=== PATIENT | male | born 1970 | race Caucasian/White ===

== ENCOUNTER → 2020-04-03 | Outpatient (CLI) | payer MEDICAID | END | disposition home or self-care (01) | LOC: Rad HDHVI 13:22 | PROVIDERS: ATTEND Internal Medicine Cardiovascular Disease | DX: I08.1 Rheumatic disorders of both mitral and tricuspid valves (principal); I10 Essential (primary) hypertension; I44.7 Left bundle-branch block, unspecified; I42.9 Cardiomyopathy, unspecified | CPT/HCPCS: 93306 ==

== ENCOUNTER → 2020-05-15 | Outpatient (CLI) | payer MEDICAID ==
[~2020-05-15] MED LIST: ATOR20TA PO; CHOL20007 PO; SACU1TAB7 PO
[2020-05-15 11:15] VITALS: BP 107/65
[2020-05-15 11:55] VITALS: BP 117/58
[2020-05-15 11:57] LABS: Basophils # (auto) 0 10 ^3/uL (0-0.2); Basophils % (auto) 0.4 % (0.0-2.0); Eosinophils # (auto) 0.1 10 ^3/uL (0-0.8); Eosinophils % (auto) 1.3 % (0.0-7.0); Hematocrit 45.4 % (41.0-53.0); Hemoglobin 14.9 g/dL (13.5-17.5); Lymphocytes # (auto) 1.8 10 ^3/uL (0.4-5.4); Lymphocytes % (auto) 22.8 % (10.0-50.0); Mean Corpuscular Hemoglobin 29.3 pg (28.0-32.0); Mean Corpuscular Hgb Conc. 32.9 g/dL (32.0-36.0); Mean Corpuscular Volume 89.1 fL (80.0-100.0); Monocytes # (auto) 0.4 10 ^3/uL (0-1.3); Monocytes % (auto) 5.6 % (0.0-12.0); Neutrophils # (auto) 5.5 10 ^3/uL (1.6-8.6); Neutrophils % (auto) 69.9 % (37.0-80.0); Platelet Count (auto) 313 10^3/uL (140-450); Red Blood Cells 5.09 10^6/uL (4.5-5.90); Red Cell Distribution Width 13.1 % (11.8-14.3); White Blood Cell 7.8 10^3/uL (4.4-10.8)
[2020-05-15 12:05] LABS: BUN/Creatinine Ratio 7.3; Calcium 9.1 mg/dL (8.5-10.1); Potassium 3.8 mmol/L (3.5-5.1)
[2020-05-15 12:15] LABS: INR 1.04 (0.9-1.15); Partial Thromboplastin Time 30.2 sec (23.64-32.05)
== END | disposition home or self-care (01) ==
LOC: Rad HDHVI 11:03
PROVIDERS: ATTEND Internal Medicine Cardiovascular Disease
DX: Z01.812 Encounter for preprocedural laboratory examination (principal); I10 Essential (primary) hypertension; D64.9 Anemia, unspecified; R79.1 Abnormal coagulation profile
CPT/HCPCS: 36415; 71046; 80048; 85025; 85610; 85730; 93005; G0463

== ENCOUNTER 2020-05-18 07:14 | Inpatient (IN) | payer MEDICAID ==
[~2020-05-18] VITALS: Ht 177.8 cm; Wt 120.0 kg
[2020-05-18] MEDS ORDERED: VANCOMYCIN HCL 1000 MG VL ONE (08:11)
[2020-05-18] MEDS ORDERED: VANCOMYCIN 1GM/250ML 250 ML IV ONE (08:11)
[2020-05-18] MEDS ORDERED: LIDOCAINE 2%HCL (LOCAL ANESTH.) INJ 20ML MDV ONE ×2 (08:15→08:56)
[2020-05-18] MEDS ORDERED: MIDAZOLAM HCL 1MG/1ML-2 ML VIAL ONE (08:25)
[2020-05-18] MEDS ORDERED: ATROPINE SULF 1 MG/10ml SYR ONE (08:25)
[2020-05-18] MEDS ORDERED: fentaNYL CITRATE 100 MCG/2 ML VL ONE (08:25)
[2020-05-18] MEDS ORDERED: IOHEXOL 350 MG/ML 100ML IJ ONE (08:35)
[2020-05-18] MEDS ORDERED: FUROSEMIDE 20 MG/2 ML VIAL ONE (09:41)
[2020-05-18] MEDS ORDERED: ONDANSETRON HCL 4 MG/2 ML VIAL ONE (10:08)
[2020-05-18] MEDS ORDERED: SODIUM CHLORIDE 0.9% 1,000 ML IV ONE (10:16)
[2020-05-18] MEDS ORDERED: ACETAMINOPHEN 325 MG TAB PO PRN (10:30)
[2020-05-18] MEDS ORDERED: MORPHINE SULF INJ 2 MG/ML SYRINGE 1ML IV PRN (10:30)
[2020-05-18] MEDS ORDERED: NITROGLYCERIN 0.4 MG SL TAB SL PRN (10:30)
--- NOTE | 2020-05-18 11:30 | NUR ---
Telemetry admit from [facility] ANGELI PARKER admitted to Telemetry unit after SBAR received. Patient is s/p pacemaker to left upper chest. Dressing is clean dry and intact. Patient oriented to BARBARA OLIVARES RN primary RN, unit, room, bed, and unit policies regarding patient care. Patient now on continuous telemetry monitoring, tele box # 75 and telemetry reading on arrival to unit is sinus 75 . Patient placed on bedside oxygen 2L NC, respirations even and unlabored. Patient states pain to left upper chest 5/10, and states he is comfortable at this time. Reviewed plan of care with patient, patient verbalized understanding. Patient instructed to call for assistance. Bed in low and locked position, call light within reach. Will continue to monitor Q1 hour and PRN.
[2020-05-18 13:00] VITALS: BP 107/69
[2020-05-18] MEDS: ceFAZolin 1GM/50ML 50 ML IV SCH ×2 (14:21→21:08)
[2020-05-18] MEDS ORDERED: CHOL20007 PO (16:35)
[2020-05-18] MEDS ORDERED: SACU1TAB7 PO (16:35)
[2020-05-18] MEDS ORDERED: ATOR20TA PO (16:35)
[2020-05-18 17:00] VITALS: BP 102/68
--- NOTE | 2020-05-18 18:56 | NUR ---
Closing Note Report given to welder first class RN. No signs or symptoms of distress noted at this time.
--- NOTE | 2020-05-18 19:17 | NUR ---
Opening Shift Note Assumed care of patient after receiving report from day RN. Patient awake and alert with no S/S of distress/SOB or pain. Call light within reach, bed in lowest position x2 side rails, HOB semi fowlers. Instructed on POC and to call for assist PRN, will continue to monitor for changes Q1hr and PRN.
--- NOTE | 2020-05-18 21:30 | NUR ---
Yosef johnson Attempted to page house sup to request arm sling for patient per MD order.
[2020-05-18 22:00] VITALS: BP 109/68
[2020-05-19 04:58] LABS: Basophils # (auto) 0 10 ^3/uL (0-0.2); Basophils % (auto) 0.4 % (0.0-2.0); Eosinophils # (auto) 0.1 10 ^3/uL (0-0.8); Eosinophils % (auto) 0.8 % (0.0-7.0); Hemoglobin 15.2 g/dL (13.5-17.5); Lymphocytes # (auto) 1.6 10 ^3/uL (0.4-5.4); Lymphocytes % (auto) 14.4 % (10.0-50.0); Mean Corpuscular Hgb Conc. 32.3 g/dL (32.0-36.0); Mean Corpuscular Volume 89.8 fL (80.0-100.0); Monocytes # (auto) 0.8 10 ^3/uL (0-1.3); Monocytes % (auto) 7.2 % (0.0-12.0); Neutrophils # (auto) 8.6 10 ^3/uL (1.6-8.6); Neutrophils % (auto) 77.2 % (37.0-80.0); Platelet Count (auto) 294 10^3/uL (140-450); Red Blood Cells 5.23 10^6/uL (4.5-5.90); Red Cell Distribution Width 12.9 % (11.8-14.3); White Blood Cell 11.1 10^3/uL (4.4-10.8)
[2020-05-19 05:00] VITALS: BP 116/65
[2020-05-19 05:12] LABS: INR 1.08 (0.9-1.15); Partial Thromboplastin Time 31.2 sec (23.64-32.05)
[2020-05-19 05:16] LABS: BUN/Creatinine Ratio 10.2; Calcium 9.1 mg/dL (8.5-10.1); Potassium 4.1 mmol/L (3.5-5.1)
[2020-05-19] MEDS: ceFAZolin 1GM/50ML 50 ML IV SCH ×2 (05:28→14:00)
--- NOTE | 2020-05-19 07:30 | NUR ---
Opening Note Received report from paint spray inspector RN. Patient is awake, alert and oriented x4. Patient is on room air, respirations even and unlabored. Patient is s/p pacemaker. Dressing to left upper chest is clean, dry and intact. Patient states pain is 5/10, and states he is comfortable at this time. Reviewed plan of care with patient, patient verbalized understanding. Bed in low and locked position, call light within reach. Will continue to monitor Q1 hour and PRN.
[2020-05-19 09:35] VITALS: BP 107/75
[2020-05-19 14:38] VITALS: BP 107/75
[2020-05-19 14:44] VITALS: BP 99/71
--- NOTE | 2020-05-19 15:33 | NUR ---
DISCHARGE Discharge instructions given as ordered. Encourage to follow up with PMD as instructed. All questions and concerns addressed. Patient verbalized understanding. Medication reconciliation form completed and copy given to patient. IV catheter removed, catheter intact, pressure dressing applied. school bus monitor removed and sent back to ICU. Patient taken down to private vehicle with all personal belongings, via wheelchair, accompanied by staff member. No signs or symptoms of distress noted at this time.
== END 2020-05-19 15:33 | disposition home or self-care (01) | DRG 161 ==
LOC: CATH 07:14 → TELE-WESTW 11:49
PROVIDERS: ADMIT Internal Medicine Cardiovascular Disease; ATTEND Internal Medicine Cardiovascular Disease
PROC: 0JH609Z Insertion of Cardiac Resynchronization Defibrillator Pulse Generator into Chest Subcutaneous Tissue and Fascia, Open Approach (ICD-10-PCS; principal; 2020-05-18)
PROC: 02HL3KZ Insertion of Defibrillator Lead into Left Ventricle, Percutaneous Approach (ICD-10-PCS; 2020-05-18)
PROC: 02H63KZ Insertion of Defibrillator Lead into Right Atrium, Percutaneous Approach (ICD-10-PCS; 2020-05-18)
PROC: 02HK3KZ Insertion of Defibrillator Lead into Right Ventricle, Percutaneous Approach (ICD-10-PCS; 2020-05-18)
DX: I11.0 Hypertensive heart disease with heart failure (principal); I42.0 Dilated cardiomyopathy; I44.7 Left bundle-branch block, unspecified; I50.23 Acute on chronic systolic (congestive) heart failure; E66.01 Morbid (severe) obesity due to excess calories; G47.30 Sleep apnea, unspecified; E78.5 Hyperlipidemia, unspecified; Z20.828 Contact with and (suspected) exposure to other viral communicable diseases; I25.5 Ischemic cardiomyopathy; I25.2 Old myocardial infarction; Z68.38 Body mass index [BMI] 38.0-38.9, adult
CPT/HCPCS: 33225; 33249; 36415; 71045; 80048; 85025; 85610; 85730; 93005; 99152; 99153; G0378; J0690; J2250; J2405